=== PATIENT | male | born 1975 | race Caucasian/White ===

== ENCOUNTER 2017-02-21 16:09 | Emergency (ER) | payer MEDICAID ==
[~2017-02-21] VITALS: Ht 165.1 cm; Wt 84.0 kg
[~2017-02-21 16:09] MED LIST: GLIP5TAB12 PO; LORA1TAB PO; METF10002 PO; SIMV20TA6 PO; SITA50TA3 PO; TEMA15CA PO
[2017-02-21 17:05] LABS: BASOPHILS % 0.9 % (0.0-2.0); EOSINOPHILS % 2.2 % (0.0-5.0); HEMATOCRIT. 44.7 % (42.0-52.0); HEMOGLOBIN. 15.5 g/dL (14.0-18.0); LYMPHOCYTES % 30.1 % (20.0-50.0); MEAN CORPUSCULAR HGB CONC 34.6 g/dL (31.0-37.0); MEAN CORPUSCULAR VOLUME 86.7 fL (80.0-94.0); MEAN PLATELET VOLUME 8.1 fl (7.4-10.4); MONOCYTES % 5.8 % (2.0-8.0); PLATELET 212 x1000/uL (130-400); RED BLOOD CELL COUNT 5.15 mill/uL (4.7-6.1); RED CELL DISTRIBUTION WIDTH 13.5 % (11.6-14.6)
[2017-02-21 17:13] LABS: CLARITY URINE CLEAR (CLEAR); COLOR URINE YELLOW (YELLOW); GLUCOSE URINE NEGATIVE (NEGATIVE); KETONES URINE NEGATIVE (NEGATIVE); LEUKOCYTE ESTERASE URINE NEGATIVE (NEGATIVE); NITRITE URINE NEGATIVE (NEGATIVE); OCCULT BLOOD URINE NEGATIVE (NEGATIVE); PH URINE 7.5 (4.5-8.0); PROTEIN URINE TRACE (NEGATIVE); SPECIFIC GRAVITY URINE 1.029 (1.005-1.030)
[2017-02-21 17:16] LABS: BACTERIA URINE NONE SEEN; CALCIUM PHOSPHATE CRYSTALS UR NONE SEEN /lpf; SQUAMOUS EPITHELIAL CELL URINE NONE SEEN /lpf (RARE/1+); WAXY CASTS URINE NONE SEEN /lpf; WBC URINE NONE SEEN /hpf (0-2); YEAST URINE NONE SEEN
[2017-02-21 17:19] LABS: ALANINE AMINOTRANSFERASE 58 IU/L (13-61); ALBUMIN 3.6 g/dL (3.4-5.0); ANION GAP 15; CALCIUM 8.2 mg/dL (8.5-10.1); CARBON DIOXIDE 27 mEq/L (21-32); CHLORIDE 102 mEq/L (98-107); INDEX HEMOLYSI 1 (1-3); INDEX ICTERIC 1 (1-4); INDEX LIPEMIC 1 (1-3); TROPONIN I < 0.02 ng/mL (0.00-0.04); UREA NITROGEN BLOOD 13 mg/dL (7-21); eGFR > 60 mL/min (>60)
[2017-02-21 18:17] VITALS: BP 121/77
== END 2017-02-21 18:28 | disposition home or self-care (01) ==
LOC: ER 16:52
DX: R20.2 Paresthesia of skin (principal); M79.605 Pain in left leg; F41.9 Anxiety disorder, unspecified; E11.9 Type 2 diabetes mellitus without complications
CPT/HCPCS: 36415; 73590; 80053; 81001; 83735; 84484; 85025; 93005; 99285

== ENCOUNTER 2017-04-27 10:06 | Emergency (ER) | payer MEDICAID ==
[~2017-04-27] VITALS: Ht 165.1 cm; Wt 83.0 kg
[2017-04-27 11:08] LABS: BASOPHILS % 0.7 % (0.0-2.0); EOSINOPHILS % 1.9 % (0.0-5.0); HEMATOCRIT. 45.3 % (42.0-52.0); HEMOGLOBIN. 15.8 g/dL (14.0-18.0); LYMPHOCYTES % 33.1 % (20.0-50.0); MEAN CORPUSCULAR HEMOGLOBIN 29.6 pg (28.0-32.0); MEAN CORPUSCULAR VOLUME 84.6 fL (80.0-94.0); MEAN PLATELET VOLUME 8.3 fl (7.4-10.4); MONOCYTES % 7.8 % (2.0-8.0); NEUTROPHILS % 56.5 % (40.0-76.0); PLATELET 188 x1000/uL (130-400); RED BLOOD CELL COUNT 5.35 mill/uL (4.7-6.1); RED CELL DISTRIBUTION WIDTH 13.3 % (11.6-14.6)
[2017-04-27 11:10] LABS: CLARITY URINE CLEAR (CLEAR); COLOR URINE YELLOW (YELLOW); GLUCOSE URINE 3+ (NEGATIVE); KETONES URINE TRACE (NEGATIVE); LEUKOCYTE ESTERASE URINE NEGATIVE (NEGATIVE); NITRITE URINE NEGATIVE (NEGATIVE); OCCULT BLOOD URINE NEGATIVE (NEGATIVE); PH URINE 5.5 (4.5-8.0); PROTEIN URINE NEGATIVE (NEGATIVE); SPECIFIC GRAVITY URINE 1.021 (1.005-1.030); UROBILINOGEN URINE 0.2 E.U./dL (0.2-1.0)
[2017-04-27] MEDS ORDERED: SODIUM CHLORIDE 0.9% 1,000 ML IV ONE (11:15)
[2017-04-27 11:18] LABS: CARBON DIOXIDE 24 mEq/L (21-32); CHLORIDE 106 mEq/L (98-107)
[2017-04-27 11:20] LABS: BETA HYDROXYBUTYRATE 0.1 mMol/L (0.0-0.3)
[2017-04-27 12:22] VITALS: BP 138/88
== END 2017-04-27 12:45 | disposition home or self-care (01) ==
LOC: ER 10:38
DX: E16.1 Other hypoglycemia (principal); F41.9 Anxiety disorder, unspecified; E11.9 Type 2 diabetes mellitus without complications; Z79.4 Long term (current) use of insulin; Z79.899 Other long term (current) drug therapy; Z91.14 Patient's other noncompliance with medication regimen
CPT/HCPCS: 36415; 80053; 81001; 82010; 85025; 96360; 99284; J7030; Z7610

== ENCOUNTER 2018-01-28 12:59 | Emergency (ER) | payer MEDICAID ==
[~2018-01-28] VITALS: Ht 165.1 cm; Wt 85.0 kg
[2018-01-28] MEDS ORDERED: SODIUM CHLORIDE 0.9% 1,000 ML IV ONE (16:16)
[2018-01-28 16:38] LABS: BASOPHILS % 0.8 % (0.0-2.0); EOSINOPHILS % 1.3 % (0.0-5.0); HEMATOCRIT. 47.3 % (42.0-52.0); HEMOGLOBIN. 16.2 g/dL (14.0-18.0); LYMPHOCYTES % 34.6 % (20.0-50.0); MEAN CORPUSCULAR HEMOGLOBIN 29.6 pg (28.0-32.0); MEAN CORPUSCULAR VOLUME 86.4 fL (80.0-94.0); MONOCYTES % 5.3 % (2.0-8.0); PLATELET 254 x1000/uL (130-400); RED BLOOD CELL COUNT 5.48 mill/uL (4.7-6.1); RED CELL DISTRIBUTION WIDTH 13.3 % (11.6-14.6)
[2018-01-28 16:43] LABS: CHLORIDE 103 mEq/L (98-107)
[2018-01-28 16:44] LABS: PROTHROMBIN TIME 10.4 sec (9.4-11.6)
[2018-01-28 17:17] LABS: CLARITY URINE CLEAR (CLEAR); COLOR URINE YELLOW (YELLOW); KETONES URINE TRACE (NEGATIVE); LEUKOCYTE ESTERASE URINE NEGATIVE (NEGATIVE); NITRITE URINE NEGATIVE (NEGATIVE); OCCULT BLOOD URINE NEGATIVE (NEGATIVE); PROTEIN URINE NEGATIVE (NEGATIVE); SPECIFIC GRAVITY URINE 1.024 (1.005-1.030)
[2018-01-28 19:06] VITALS: BP 120/82
== END 2018-01-28 19:10 | disposition home or self-care (01) ==
LOC: ER 14:12
DX: R42 Dizziness and giddiness (principal); I10 Essential (primary) hypertension; E11.9 Type 2 diabetes mellitus without complications; Z79.84 Long term (current) use of oral hypoglycemic drugs; Z79.899 Other long term (current) drug therapy
CPT/HCPCS: 36415; 71045; 80053; 81003; 82962; 83690; 85025; 85610; 93005; 96360; 96361; 99285; J7030; Z7610

== ENCOUNTER 2019-02-06 22:03 | Emergency (ER) | payer MEDICAID ==
[~2019-02-06] VITALS: Ht 165.1 cm; Wt 85.6 kg
[~2019-02-06 22:03] MED LIST changes: +METF-416 PO; -METF10002 PO
[2019-02-06 22:16] VITALS: BP 139/96
== END 2019-02-06 23:20 | disposition home or self-care (01) ==
LOC: ER 22:03
DX: E11.65 Type 2 diabetes mellitus with hyperglycemia (principal); F41.9 Anxiety disorder, unspecified; Z79.899 Other long term (current) drug therapy
CPT/HCPCS: 82962; 99281; 99282